=== PATIENT | female | born 1990 | race Caucasian/White ===

== ENCOUNTER 2017-01-04 14:00 | Emergency (ER) | payer OTHER ==
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
[2017-01-04 14:18] VITALS: BP 144/79
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
== END 2017-01-04 16:21 | disposition home or self-care (01) ==
LOC: ER 14:00
DX: S90.31XA Contusion of right foot, initial encounter (principal); C50.919 Malignant neoplasm of unspecified site of unspecified female breast; S06.0X9A Concussion with loss of consciousness of unspecified duration, initial encounter; F17.210 Nicotine dependence, cigarettes, uncomplicated; W10.9XXA Fall (on) (from) unspecified stairs and steps, initial encounter; Y92.009 Unspecified place in unspecified non-institutional (private) residence as the place of occurrence of the external cause; F41.9 Anxiety disorder, unspecified; R56.9 Unspecified convulsions

== ENCOUNTER 2017-05-05 08:32 | Emergency (ER) | payer OTHER ==
[2017-05-05 09:14] LABS: Hematocrit 43.6 % (37.0-47.0); Hemoglobin 14.7 gm/dL (12.5-16.0); Mean Cell Volume 90.3 fl (78-100); Mean Corpuscular Hemoglobin 30.4 pg (27-31); Mean Corpuscular Hgb Conc 33.7 g/dl (32-36); Mean Platelet Volume 9.8 fl (6.0-9.5); Neutrophil # 5.6 K/mm3 (1.3-6.0); Neutrophil % 61.8 % (42-75.0); Platelet Count 255 K/mm3 (150-450); Red Blood Count 4.83 M/mm3 (4.2-5.4); Red Cell Distribution Width 13.2 % (11.5-14.0)
[2017-05-05 09:35] LABS: Urine Bilirubin Negative (NEGATIVE); Urine Blood Negative /ul (NEGATIVE); Urine Ketone Negative (NEGATIVE); Urine Nitrite Negative (NEGATIVE); Urine Protein Negative (NEGATIVE); Urine Urobilinogen Normal (NORMAL)
[2017-05-05 09:38] LABS: ALT 57 U/L (19-67); AST 68 U/L (0-48); Acetaminophen * 4.3 mcg/mL (10.0-30.0); Alkaline Phosphatase * 81 U/L (50-170); Anion Gap 10.7 mmol/L (6.8-13.8); BUN/Creatinine Ratio 9.3 (9.0-21.6); Bilirubin, Total 0.3 mg/dL (0.0-1.1); Blood Urea Nitrogen 8 mg/dL (3-23); Ca. Corrected For Albumin 8.8 mg/dL (8.4-10.2); Calcium * 9.1 mg/dL (7.9-10.9); Chloride 105 mmol/L (97-106); Glucose * 89 mg/dL (70-110); Potassium 3.7 mmol/L (3.4-4.6); Salicylate 4.9 mg/dL (2.8-20.0); Sodium 142 mmol/L (132-142); TSH * 3.203 uIU/mL (0.358-3.74); Total Protein 7.5 gm/dL (6.2-8.2)
[2017-05-05 09:44] LABS: Urine Appearance Slightly Cloudy; Urine Bacteria TRACE; Urine Color Yellow; Urine RBC None Seen /hpf (0-5); Urine WBC None Seen /hpf (0-5)
[2017-05-05 09:50] LABS: Cocaine Ur Negative (NEGATIVE); Urine Barbiturate Negative (NEGATIVE); Urine Benzodiazepines Positive (NEGATIVE); Urine Opiates Positive (NEGATIVE); Urine PCP Negative (NEGATIVE); Urine THC Negative (NEGATIVE)
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
--- OUTSIDE RECORDS SUMMARY | 2017-05-05 10:16 | XMS REPORT | Continuity of Care Document ---
:1990 Author Organization [facility] [place] [address] Care Team Providers Name Role Phone Unavailable Primary Care Provider Unavailable Source Comments This disclosure is being made pursuant to the [employer] program and maynot contain all information available regarding this patient.[facility] Active Allergies and Adverse Reactions Not on File Current Medications Be aware that medications may not be up to date as of this document. Alwaysverify current medications with the patient. Not on file Active Problems Not on file Social History Tobacco Use Types Packs/Day Years Used Date Never Assessed Plan of Care Date Type Specialty Providers Description 06/26/2017 Appointment Oncology Erick Glaser MD [address] [place] [phone] (Fax) 06/26/2017 Appointment Oncology Health Maintenance Due Date Last Done Comments Tetanus/Pertussis (1 - Tdap) 02/18/2007 Pap Smear 02/18/2009 Influenza Immunization (#1) 2016 Results from Last 3 Months Not on file
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
[2017-05-05] MEDS ORDERED: HYDROcodone/ACETAMINOPHEN 1 EACH TABLET PO ONE (12:24)
[2017-05-05] MEDS ORDERED: HYDROcodone/ACETAMINOPHEN 1 EACH TABLET ONE (12:24)
[2017-05-05 12:44] VITALS: BP 120/66
== END 2017-05-05 12:35 | disposition short-term general hospital (02) ==
LOC: ER 08:32
DX: F33.2 Major depressive disorder, recurrent severe without psychotic features (principal); R45.851 Suicidal ideations
CPT/HCPCS: 36415; 80053; 80307; 81001; 84443; 84703; 85025; 99285; G0480; G0481

== ENCOUNTER 2017-10-11 13:10 | Emergency (ER) | payer OTHER ==
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
[2017-10-11 14:26] VITALS: BP 136/76
== END 2017-10-11 14:48 | disposition home or self-care (01) ==
LOC: ER 13:10
DX: J32.9 Chronic sinusitis, unspecified (principal); R56.9 Unspecified convulsions; F17.200 Nicotine dependence, unspecified, uncomplicated; Z85.3 Personal history of malignant neoplasm of breast

== ENCOUNTER 2017-10-15 00:13 | Emergency (ER) | payer OTHER ==
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
[2017-10-15] MEDS ORDERED: ORPHENADRINE CITRATE 30 MG/ML VIAL IM ONE (00:38)
[2017-10-15 00:41] LABS: Hematocrit 38.4 % (37.0-47.0); Hemoglobin 13.3 gm/dL (12.5-16.0); Mean Cell Volume 89.5 fl (78-100); Mean Corpuscular Hgb Conc 34.6 g/dl (32-36); Mean Platelet Volume 9.9 fl (6.0-9.5); Neutrophil # 7.5 K/mm3 (1.3-6.0); Neutrophil % 74.3 % (42-75.0); Platelet Count 243 K/mm3 (150-450); Red Blood Count 4.29 M/mm3 (4.2-5.4); Red Cell Distribution Width 13.1 % (11.5-14.0); White Blood Count 10.1 K/mm3 (4.0-10.5)
[2017-10-15] MEDS ORDERED: ORPHENADRINE CITRATE 30 MG/ML VIAL ONE (00:41)
[2017-10-15] MEDS ORDERED: tiZANidine HCL 4 MG TABLET PO ONE (00:45)
[2017-10-15 00:54] LABS: Albumin * 3.2 gm/dl (3.4-5.0); Anion Gap 14.3 mmol/L (6.8-13.8); BUN/Creatinine Ratio 12.2 (9.0-21.6); Bilirubin, Total 0.1 mg/dL (0.0-1.1); Ca. Corrected For Albumin 8.7 mg/dL (8.4-10.2); Calcium * 8.4 mg/dL (7.9-10.9); Carbon Dioxide 23.2 mmol/L (24-32.6); Potassium 3.5 mmol/L (3.4-4.6); Total Protein 6.1 gm/dL (6.2-8.2)
[2017-10-15 00:56] LABS: Urine Bilirubin Negative (NEGATIVE); Urine Blood 25 /ul (NEGATIVE); Urine Ketone Negative (NEGATIVE); Urine Nitrite Negative (NEGATIVE); Urine Protein Negative (NEGATIVE); Urine Urobilinogen Normal (NORMAL)
[2017-10-15 01:07] LABS: Urine Amorphous Sediment Few - 1+ (NONE-FEW); Urine Appearance Clear; Urine Bacteria 1+; Urine Color Pale Yellow; Urine Fine Granular Cast 0-5 /LPF; Urine RBC None Seen /hpf (0-5); Urine WBC None Seen /hpf (0-5)
[2017-10-15 01:09] LABS: Cocaine Ur Negative (NEGATIVE); Urine Barbiturate Negative (NEGATIVE); Urine Opiates Negative (NEGATIVE); Urine PCP Negative (NEGATIVE)
[2017-10-15 01:12] LABS: Urine Benzodiazepines Positive (NEGATIVE); Urine THC Positive (NEGATIVE)
[2017-10-15] MEDS ORDERED: LORazepam 1 MG TABLET PO ONE (01:26)
[2017-10-15] MEDS ORDERED: LORazepam 1 MG TABLET ONE (01:27)
[2017-10-15 01:39] VITALS: BP 125/62
== END 2017-10-15 01:34 | disposition home or self-care (01) ==
LOC: ER 00:13
DX: R56.9 Unspecified convulsions (principal); Z53.29 Procedure and treatment not carried out because of patient's decision for other reasons; F32.9 Major depressive disorder, single episode, unspecified